=== PATIENT | male | born 1985 ===

== ENCOUNTER 2016-10-28 12:00 | Emergency (ER) | payer SELFPAY ==
[2016-10-28 12:05] VITALS: BP 129/78; PULSE 119; RESP 18; TEMP 98; O2SAT 100
[2016-10-28 12:07] VITALS: BMI 26.9
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
--- NOTE | 2016-10-28 13:33 | RAD ---
PROCEDURE: Cervical Spine Radiographs. HISTORY: Pain. COMPARISON: None. FINDINGS: BONES: Alignment maintained. No fracture. Dens Intact. DISC SPACES: Normal. SOFT TISSUES: Normal. No prevertebral soft tissue swelling. OTHER FINDINGS: None. IMPRESSION: Normal cervical spine radiographs
== END 2016-10-28 12:50 | disposition home or self-care (01) ==
LOC: H.ER 12:00
DX: M54.2 Cervicalgia (principal); Y04.0XXA Assault by unarmed brawl or fight, initial encounter; Y92.410 Unspecified street and highway as the place of occurrence of the external cause